=== PATIENT | female | born 1995 | race Caucasian/White ===

== ENCOUNTER 2017-01-17 19:29 | Emergency (ER) | payer MEDICAID ==
[~2017-01-17] VITALS: Ht 170.2 cm; Wt 52.6 kg
--- OUTSIDE RECORDS SUMMARY | 2017-01-17 19:32 | XMS REPORT | Continuity of Care Document ---
Author Author [facility] Organization [facility] Address Unknown Phone Unavailable Care Team Providers Care Shook Machine Operator Name Role Phone FRANK MANZO Primary Care Physician [phone] Insurance Providers Payer Name Policy Number Subscriber Name Relationship [facility] [employer] [id number] Karlo Galindo 17 Self Problems Medical Problems Problem Onset Date Status ABSCESS Unknown Active Laceration of ear Unknown Active Medications Medication Dose Route Sig Days/Qty Instructions Order Date Discontinued Date Status Albuterol NEEDED 10/17/08 06/17/11 Discontinued Phenylephrine/Chlor-Mal/Scop NEEDED 10/17/08 06/17/11 Discontinued [Flovent] 10/17/08 06/17/11 Discontinued [Singulair] 10/17/08 10/03/09 Discontinued [Melvi] 03/02/09 06/17/11 Discontinued Citalopram Hydrobromide 10 Mg PO DAILY 10/03/09 06/17/11 Discontinued Vits W-Ca,Fe,Fa(<1MG) 1 Tab PO DAILY 06/17/11 Active Iron 50 Mg PO DAILY 06/17/11 Active Oxycodone HCl/Acetaminophen 5 Mg PO FOUR TIMES DAILY For PAIN 15 Qty Take 1 tablet, by mouth, 4 times a day. 08/30/14 Active Social History Social History Problem Response Recorded Date/Time Smoking Status Unknown if ever smoked 08/30/2014 2:20am Query Response Start Date Stop Date Smoking Status Unknown if ever smoked Hospital Discharge Instructions No hospital discharge instructions. Plan of Care No plan of care. Functional Status Query Response Date Recorded Physical Hygiene Self August 30, 2014 2:20am Disabilities None August 30, 2014 2:20am Devices Used None August 30, 2014 2:20am Dressing Self August 30, 2014 2:20am Ambulation Self August 30, 2014 2:20am Diet Self August 30, 2014 2:20am Mental Status Alert Oriented August 30, 2014 2:20am Disabilities None August 30, 2014 2:20am Devices Used None August 30, 2014 2:20am Physical Hygiene Self August 30, 2014 2:20am Dressing Self August 30, 2014 2:20am Ambulation Self August 30, 2014 2:20am Diet Self August 30, 2014 2:20am Allergies, Adverse Reactions, Alerts Allergen Type Severity Reaction Status Last Updated No Known Drug Allergies Allergy Unknown NONE Active 08/30/14 Immunizations Name Given Type Hx Tetanus, Diptheria, Pertussis Yes Historical Hx Tetanus, Diptheria, Pertussis Yes Historical Vital Signs Acute Vital Signs Vital Response Date/Time Temperature (Fahrenheit) 97.8 deg F (96.8 - 99.1) Temperature (Calculated Celsius) 36.18464 degrees C (36.0 - 37.3) Pulse Rate (adult) 109 bpm (60 - 100) Respiratory Rate 20 breaths/min (10 - 20) O2 Sat by Pulse Oximetry 98 % (90 - 100) Blood Pressure 116/71 mm Hg Height 5 ft 7 in Weight 110 lb Body Mass Index 17.0 kg/m^2 Results Test Source Date Result Interp. Ref. Range Comments Alanine Aminotransferase (ALT/SGPT) January 25, 2011 12:40pm 14 U/L N 9- 52 Albumin January 25, 2011 12:40pm 4.70 G/DL N 3.5-5.0 Albumin/Globulin Ratio January 25, 2011 12:40pm 1.5 RATIO N 1.1-2.2 Alkaline Phosphatase January 25, 2011 12:40pm 96 U/L N 70-260 Anion Gap January 25, 2011 12:40pm 15.9 MEQ/L H 5-15 Aspartate Amino Transf (AST/SGOT) January 25, 2011 12:40pm 21 U/L N 10-40 BUN/Creatinine Ratio January 25, 2011 12:40pm 21 RATIO N 6-26 Basophils # (Auto) February 18, 2013 4:45pm 0.0 T/MM3 N 0-0.2 Basophils (%) (Auto) February 18, 2013 4:45pm 0.6 % N 0-2 Blood Urea Nitrogen January 25, 2011 12:40pm 14.4 MG/DL N 7-17 Calcium Level January 25, 2011 12:40pm 9.8 MG/DL N 8.4-10.2 Calculated Osmolality January 25, 2011 12:40pm 277 MOSM/KG N 261-280 Carbon Dioxide Level January 25, 2011 12:40pm 21 MEQ/L L 22-30 Chloride Level January 25, 2011 12:40pm 106 MEQ/L N 98-107 Creatinine January 25, 2011 12:40pm 0.7 MG/DL N 0.2-1.2 Eosinophils # (Auto) February 18, 2013 4:45pm 0.0 T/MM3 N 0-0.5 Eosinophils (%) (Auto) February 18, 2013 4:45pm 0.2 % N 0-4 Globulin January 25, 2011 12:40pm 3.1 G/DL N 2.4-3.6 Glucose Level January 25, 2011 12:40pm 118 MG/DL H 65-110 Hematocrit February 18, 2013 4:45pm 42.9 % N 36-46 Hemoglobin February 18, 2013 4:45pm 14.3 GM/DL N 12-16 Human Chorionic Gonadotropin, Qual January 25, 2011 12:40pm Negative - Lymphocytes # (Auto) February 18, 2013 4:45pm 1.5 T/MM3 N 1-4.8 Lymphocytes (%) (Auto) February 18, 2013 4:45pm 28.3 % N 23-45 Mean Corpuscular Hemoglobin February 18, 2013 4:45pm 29.4 UUG N 26-34 Mean Corpuscular Hemoglobin Concent February 18, 2013 4:45pm 33.3 GM/DL N 31-37 Mean Corpuscular Volume February 18, 2013 4:45pm 88.1 UM3 N 80-100 Mean Platelet Volume February 18, 2013 4:45pm 11.8 UM3 N 9.4-12.4 Monocytes # (Auto) February 18, 2013 4:45pm 0.5 T/MM3 N 0-0.8 Monocytes (%) (Auto) February 18, 2013 4:45pm 8.6 % N 0-9.0 Neutrophils # (Auto) February 18, 2013 4:45pm 3.3 T/MM3 N 1.8-7.7 Neutrophils (%) (Auto) February 18, 2013 4:45pm 62.3 % N 33-66 Platelet Count February 18, 2013 4:45pm 177 T/MM3 N 130-400 Potassium Level January 25, 2011 12:40pm 3.6 MEQ/L N 3.6-5 RDW Standard Deviation February 18, 2013 4:45pm 44.9 FL N 36.9-50.2 Red Blood Count February 18, 2013 4:45pm 4.87 M/MM3 N 4.00-5.20 Sodium Level January 25, 2011 12:40pm 143 MEQ/L N 134-144 Total Bilirubin January 25, 2011 12:40pm 0.88 MG/DL N 0.20-1.30 Total Protein January 25, 2011 12:40pm 7.8 G/DL N 6.3-8.2 White Blood Count February 18, 2013 4:45pm 5.3 T/MM3 N 4.5-11.0 Lab Scanned Report August 29, 2013 10:31am LAB RESULTS - SCANNED [id number] - Immature Granulocyte # (Auto) February 18, 2013 4:45pm 0.00 T/MM3 N 0.00- 0.03 Immature Granulocyte % (Auto) February 18, 2013 4:45pm 0.0 % N 0.0-0.5 Gram Stain Knee, Non-Surgical Site-Left August 25, 2013 1:00pm Procedures No known history of procedures. Encounters Encounter Location Date/Time Departed Emergency Room [facility] 08/30/14 12:47am Departed Emergency Room [facility] 07/28/14 9:45pm Recent Diagnosis
--- OUTSIDE RECORDS SUMMARY | 2017-01-17 19:33 | XMS REPORT | Continuity of Care Document ---
Author Author [facility] Organization [facility] Address Unknown Phone Unavailable Allergies Active Description Code Type Severity Reaction Onset Reported/Identified Relationship to Patient Clinical Status Yes No Known Drug Intolerances No Known Drug Intolerances Drug Allergy Unknown UNK 06/30/2011 Medications Problems Date Dx Coded Attending Type Code Diagnosis Diagnosed By 10/24/2015 Myra ADKINS, Carlos Vickers D62 ACUTE POSTHEMORRHAGIC ANEMIA 10/24/2015 Myra ADKINS, Carlos Vickers J45.909 UNSPECIFIED ASTHMA, UNCOMPLICATED 10/24/2015 Myra ADKINS, Carlos Vickers O69.81X0 LABOR AND DEL COMP BY CORD AROUND NECK, W/ O COMPRS 10/24/2015 Carlos Renteria MD O71.4 OBSTETRIC HIGH VAGINAL LACERATION ALONE 10/24/2015 Myra ADKINS, Carlos Veronica O80 ENCOUNTER FOR FULL-TERM UNCOMPLICATED DELIVERY 10/24/2015 Carlos Renteria MD O99.02 ANEMIA COMPLICATING CHILDBIRTH 10/24/2015 Carlos Renteria MD O99.52 DISEASES OF THE RESPIRATORY SYSTEM COMPLICATING CH 10/24/2015 Carlos Renteria MD Z37.0 SINGLE LIVE 10/24/2015 Carlos Renteria MD Z3A.40 40 WEEKS GESTATION OF Procedures Code Description Performed By Performed On [id number] REPAIR VAGINA, EXTERNAL APPROACH Azael Hoskins MD 10/24/2015 [id number] DRAINAGE OF AMNIOTIC FL, THERAP FROM POC, VIA OPEN Azael Hoskins MD 10/24/2015 [id number] DELIVERY OF PRODUCTS OF CONCEPTION, EXTERNAL APPRO Azael Hoskins MD 10/24/2015 Results Test Result Range URINALYSIS, ROUTINE - 07/29/14 00:05 UA LEUKOCYTE ESTERASE DIPSTICK 2+ NEGATIVE UA NITRITE DIPSTICK NEGATIVE NEGATIVE UA PROTEIN DIPSTICK NEGATIVE NEGATIVE UA GLUCOSE DIPSTICK NEGATIVE NEGATIVE UA KETONE DIPSTICK NEGATIVE NEGATIVE UA UROBILINOGEN DIPSTICK 2+ NORMAL UA BILIRUBIN DIPSTICK NEGATIVE NEGATIVE UA BLOOD DIPSTICK NEGATIVE NEGATIVE UA COMMENT UA SPECIFIC GRAVITY 1.005 1.015-1.025 UR PH 8.0 5.0-7.0 UR TEST - 07/29/14 00:05 UR TEST NEGATIVE NEGATIVE UA MICROSCOPIC - 07/29/14 00:05 UA BACTERIA 2+ NEGATIVE UA EPITHELIAL CELLS 5+ epi/hpf 0 - 1+ UA MUCUS 2+ NEG TO 1+ UA RBC 0 rbc/hpf 0 - 3 UA VOLUME FOR EXAM 12.0 mL (12mL STD) UA WBC 5-10 wbc/hpf 0 - 5 CHEM/HEM PROFILE-BEDSIDE - 07/29/14 23:11 POTASSIUM 4.5 mmol/L 3.5-5.3 METHOD Bedside ANION GAP 14 mmol/L 10-20 METHOD Bedside GLUCOSE 100 mg/dL 70-99 BLOOD UREA NITROGEN 7 mg/dL 7-20 CREATININE 0.9 mg/dL 0.6-1.0 HEMOGLOBIN 13.6 gm/dL 12.0-16.0 HEMATOCRIT 40.0 % 37.0-47.0 SODIUM 134 mmol/L 135-148 CHLORIDE 101 mmol/L 98-110 CARBON DIOXIDE 24 mmol/L 21-32 CALCIUM IONIZED 4.3 mg/dL 4.5-5.3 CBC W/MANUAL DIFF - 07/29/14 23:11 MEAN CELL HGB 31.3 pg 27.0-33.0 MEAN CELL HGB CONCENTRATION 34.8 g/dL 32.0-37.0 MEAN CELL VOLUME 90.0 fl 80.0-100.0 RED BLOOD CELL 4.18 m/cumm 4.00-6.00 RED CELL DISTRIBUTION WIDTH 12.9 % 11.0- 15.6 WHITE BLOOD CELL 15.1 k/cumm 5.0-10.0 HEMOGLOBIN 13.1 gm/dL 12.0-16.0 HEMATOCRIT 37.6 % 37.0-47.0 PLATELET COUNT 286 k/cumm 150-400 MANUAL DIFF(O) - 07/29/14 23:11 GRANULOCYTE # 12.4 k/cumm 2.0-9.0 LYMPHOCYTE # 2.0 k/cumm 1.0-4.0 LYMPHOCYTE % 13 % 20-30 DIFFERENTIAL MANUAL MONOCYTE # 0.8 k/cumm 0.1-1.0 MONOCYTE % 5 % 4-6 RBC MORPH NORMAL SEGMENTED NEUTROPHIL % 82 % 50-70 HEPATIC FUNCTION PANEL - 07/29/14 23:11 BILI UNCONJUGATED 0.5 mg/dL 0.0-0.7 AST/SGOT 10 Units/L 10-37 ALT/SGPT 14 Units/L < 66 TOTAL PROTEIN 7.1 gm/dL 6.4-8.2 ALBUMIN 3.0 gm/dL 3.4-5.0 BILI TOTAL 0.6 mg/dL 0.0-1.0 ALKALINE PHOSPHATASE TOTAL 52 IU/L 45- 117 BILI CONJUGATED 0.1 mg/dL 0.0-0.3 LIPASE - 07/29/14 23:11 LIPASE 87 Units/L 73-393 WET MOUNT - 07/30/14 03:05 Microbiology GRAM STAIN - CHLAMYDIA DNA BY PCR - 07/30/14 03:05 Microbiology CBC W/DIFF - 04/13/15 18:55 EOSINOPHIL # 0.1 k/cumm 0.1-0.5 EOSINOPHIL % 1 % 2-4 GRANULOCYTE # 7.3 k/cumm 2.0-9.0 GRANULOCYTE % 75 % 50-75 LYMPHOCYTE # 1.7 k/cumm 1.0-4.0 LYMPHOCYTE % 17 % 20-30 MEAN CELL HGB 31.1 pg 27.0-33.0 MEAN CELL HGB CONCENTRATION 35.2 g/dL 32.0-37.0 MEAN CELL VOLUME 88.6 fl 80.0-100.0 MONOCYTE # 0.7 k/cumm 0.1-1.0 MONOCYTE % 7 % 4-6 RED BLOOD CELL 4.11 m/cumm 4.00-6.00 RED CELL DISTRIBUTION WIDTH 12.6 % 11.0- 15.6 WHITE BLOOD CELL 9.7 k/cumm 5.0-10.0 HEMOGLOBIN 12.8 gm/dL 12.0-16.0 HEMATOCRIT 36.4 % 37.0-47.0 PLATELET COUNT 224 k/cumm 150-400 HCG QUANT INTACT - 04/13/15 18:55 HCG QUANT INTACT 65383 mIU/mL CHEM/HEM PROFILE-BEDSIDE - 04/13/15 19:00 POTASSIUM 3.8 mmol/L 3.5-5.3 METHOD Bedside ANION GAP 17 mmol/L 10-20 METHOD Bedside GLUCOSE 102 mg/dL 70-99 BLOOD UREA NITROGEN 6 mg/dL 7-20 CREATININE 0.4 mg/dL 0.6-1.0 HEMOGLOBIN 12.6 gm/dL 12.0-16.0 HEMATOCRIT 37.0 % 37.0-47.0 SODIUM 137 mmol/L 135-148 CHLORIDE 105 mmol/L 98-110 CARBON DIOXIDE 20 mmol/L 21-32 CALCIUM IONIZED 4.8 mg/dL 4.5-5.3 URINALYSIS, ROUTINE - 04/13/15 19:44 UA LEUKOCYTE ESTERASE DIPSTICK TRACE NEGATIVE UA NITRITE DIPSTICK NEGATIVE NEGATIVE UA PROTEIN DIPSTICK NEGATIVE NEGATIVE UA GLUCOSE DIPSTICK NEGATIVE NEGATIVE UA KETONE DIPSTICK NEGATIVE NEGATIVE UA UROBILINOGEN DIPSTICK NORMAL NORMAL UA BILIRUBIN DIPSTICK NEGATIVE NEGATIVE UA BLOOD DIPSTICK NEGATIVE NEGATIVE UA SPECIFIC GRAVITY 1.015 1.015-1.025 UR PH 7.5 5.0-7.0 UA MICROSCOPIC - 04/13/15 19:44 UA BACTERIA 1+ NEGATIVE UA EPITHELIAL CELLS 3+ epi/hpf 0 - 1+ UA MUCUS 1+ NEG TO 1+ UA RBC 0-3 rbc/hpf 0 - 3 UA VOLUME FOR EXAM 12.0 mL (12mL STD) UA WBC 2-5 wbc/hpf 0 - 5 UR TEST - 04/13/15 19:45 UR TEST POSITIVE NEGATIVE CBC W/DIFF - 10/21/15 14:35 GRANULOCYTE # 9.0 k/cumm 2.0-9.0 LYMPHOCYTE # 0.7 k/cumm 1.0-4.0 LYMPHOCYTE % 7 % 20-30 MEAN CELL HGB 30.7 pg 27.0-33.0 MEAN CELL HGB CONCENTRATION 34.0 g/dL 32.0-37.0 MEAN CELL VOLUME 90.2 fl 80.0-100.0 MONOCYTE # 0.8 k/cumm 0.1-1.0 MONOCYTE % 8 % 4-6 RED BLOOD CELL 3.88 m/cumm 4.00-6.00 RED CELL DISTRIBUTION WIDTH 13.5 % 11.0- 15.6 WHITE BLOOD CELL 10.6 k/cumm 5.0-10.0 HEMOGLOBIN 11.9 gm/dL 12.0-16.0 HEMATOCRIT 35.0 % 37.0-47.0 PLATELET COUNT 272 k/cumm 150-400 MANUAL DIFF(R) - 10/21/15 14:35 BAND % 1 % 0-10 DIFFERENTIAL MANUAL RBC MORPH NOTED SEGMENTED NEUTROPHIL % 84 % 50-70 URINALYSIS, ROUTINE - 10/21/15 14:35 UA LEUKOCYTE ESTERASE DIPSTICK TRACE NEGATIVE UA NITRITE DIPSTICK NEGATIVE NEGATIVE UA PROTEIN DIPSTICK TRACE NEGATIVE UA GLUCOSE DIPSTICK NEGATIVE NEGATIVE UA KETONE DIPSTICK TRACE NEGATIVE UA UROBILINOGEN DIPSTICK NORMAL NORMAL UA BILIRUBIN DIPSTICK NEGATIVE NEGATIVE UA BLOOD DIPSTICK NEGATIVE NEGATIVE UA SPECIFIC GRAVITY 1.030 1.015-1.025 UR PH 8.0 5.0-7.0 UA MICROSCOPIC - 10/21/15 14:35 UA AMORPHOUS SEDIMENT 1+ UA BACTERIA 3+ NEGATIVE UA EPITHELIAL CELLS 3+ epi/hpf 0 - 1+ UA MUCUS 1+ NEG TO 1+ UA RBC 3-5 rbc/hpf 0 - 3 UA VOLUME FOR EXAM 6.0 mL (12mL STD) UA WBC 2-5 wbc/hpf 0 - 5 METABOLIC PANEL, COMPREHN - 10/21/15 14:35 POTASSIUM 3.6 mmol/L 3.5-5.3 EST GFR (MDRD) > 60 mL/min > 59 ANION GAP 7 mmol/L 5-15 EST CrCl (CG) > 60 mL/min > 59 GLUCOSE 85 mg/dL 70-99 CALCIUM 7.8 mg/dL 8.5-10.1 BLOOD UREA NITROGEN 11 mg/dL 7-20 CREATININE 0.6 mg/dL 0.6-1.0 SODIUM 137 mmol/L 135-148 CHLORIDE 105 mmol/L 98-110 AST/SGOT 14 Units/L 10-37 ALT/SGPT 14 Units/L < 66 CARBON DIOXIDE 25 mmol/L 21-32 TOTAL PROTEIN 7.0 gm/dL 6.4-8.2 ALBUMIN 2.9 gm/dL 3.4-5.0 BILI TOTAL 0.4 mg/dL 0.0-1.0 ALKALINE PHOSPHATASE TOTAL 106 IU/L 45- 117 CBC - 10/24/15 11:55 MEAN CELL HGB 30.3 pg 27.0-33.0 MEAN CELL HGB CONCENTRATION 33.5 g/dL 32.0-37.0 MEAN CELL VOLUME 90.3 fl 80.0-100.0 RED BLOOD CELL 4.13 m/cumm 4.00-6.00 RED CELL DISTRIBUTION WIDTH 13.7 % 11.0- 15.6 WHITE BLOOD CELL 14.2 k/cumm 5.0-10.0 HEMOGLOBIN 12.5 gm/dL 12.0-16.0 HEMATOCRIT 37.3 % 37.0-47.0 PLATELET COUNT 277 k/cumm 150-400 CORD VENOUS BLOOD GAS - 10/24/15 14:40 VENOUS CORD BLOOD BASE EXCESS -3.9 meq/L -5.8-0.7 COMMENT VENOUS VENOUS CORD BLOOD HCO3 20.3 meq/L 17.4- 25.4 VENOUS CORD BLOOD PCO2 35 mm Hg 28-57 VENOUS CORD BLOOD PH 7.38 7.23-7.46 VENOUS CORD BLOOD PO2 42 mm Hg 15-42 VENOUS CORD BLOOD O2 SAT 86 % 14-75 CORD ARTERIAL BLOOD GAS - 10/24/15 14:40 ARTERIAL CORD BLD BASE EXCESS -4.5 meq/L -7.6-1.3 COMMENT ARTERIAL ARTERIAL CORD BICARBONATE 23.8 meq/L 16.0 -27.1 ARTERIAL CORD BLOOD PCO2 57 mm Hg 32-69 ARTERIAL CORD BLOOD PH 7.24 7.14-7.40 ARTERIAL CORD BLOOD PO2 16.5 mm Hg 8-33 ARTERIAL CORD BLOOD O2 SAT 18 % 5-59 HEMOGLOBIN - 10/24/15 18:40 MEAN CELL VOLUME 90.4 fl 80.0-100.0 HEMOGLOBIN 10.9 gm/dL 12.0-16.0 HGB HCT - 10/25/15 05:47 MEAN CELL VOLUME 90.9 fl 80.0-100.0 HEMOGLOBIN 10.8 gm/dL 12.0-16.0 HEMATOCRIT 32.1 % 37.0-47.0 HEMOGLOBIN - 05/12/16 14:37 MEAN CELL VOLUME 89.4 fl 80.0-100.0 HEMOGLOBIN 12.7 gm/dL 12.0-16.0 HCG QUANT INTACT - 05/12/16 14:37 HCG QUANT INTACT 769 mIU/mL URINALYSIS, ROUTINE - 05/12/16 15:56 UA LEUKOCYTE ESTERASE DIPSTICK NEGATIVE NEGATIVE UA NITRITE DIPSTICK NEGATIVE NEGATIVE UA PROTEIN DIPSTICK 2+ NEGATIVE UA GLUCOSE DIPSTICK NEGATIVE NEGATIVE UA KETONE DIPSTICK TRACE NEGATIVE UA UROBILINOGEN DIPSTICK NORMAL NORMAL UA BILIRUBIN DIPSTICK 1+ NEGATIVE UA BLOOD DIPSTICK 3+ NEGATIVE UA SPECIFIC GRAVITY 1.015 1.015-1.025 UR PH 7.5 5.0-7.0 UA MICROSCOPIC - 05/12/16 15:56 UA AMORPHOUS SEDIMENT 1+ UA BACTERIA 1+ NEGATIVE UA EPITHELIAL CELLS 1+ epi/hpf 0 - 1+ UA MUCUS 1+ NEG TO 1+ UA RBC 20-50 rbc/hpf 0 - 3 UA VOLUME FOR EXAM 12.0 mL (12mL STD) UA WBC 2-5 wbc/hpf 0 - 5 Encounters ACCT No. Visit Date/Time Discharge Status Pt. Type Provider Facility Loc./Unit Complaint [id number] 2016 14:11:00 2015 17:54:00 DIS Emergency Adeline Gilliam DO [address] W.KATHERYN [id number] 10/24/2015 11:56:00 2014 18:31:00 DIS Inpatient Myra ADKINS, [facility] W.5WH [id number] 10/21/2015 13:45:00 2014 19:18:00 DIS Emergency Myra ADKINS, [facility] W.2WOBED [id number] 07/13/2015 17:44:00 2014 21:09:00 DIS Emergency Myra ADKINS, [facility] W.2WOBED [id number] 04/13/2015 18:23:00 2014 21:41:00 DIS Emergency Jovanna ADKINS, [facility] [id number] 07/29/2014 22:48:00 2013 04:13:00 DIS Emergency Uri Spencer DO W.KATHERYN [id number] 08/18/2015 13:53:00 Document Registration
--- OUTSIDE RECORDS SUMMARY | 2017-01-17 19:33 | XMS REPORT | Continuity of Care Document ---
Author Author [facility] Organization [facility] Address Unknown Phone Unavailable Care Team Providers Care Dry Cell Assembly Machine Tender Name Role Phone FRANK MANZO Primary Care Physician [phone] Insurance Providers Guarantor Karlo Galindo Address [address] [place] [address] Email [email or web address] Payer [facility] [employer] Policy Number [id number] Subscriber's Name Karlo Galindo Relationship 18 Self Effective Date 16 Expiration Date 16 Advance Directives Directive Response Recorded Date/Time Ordered Resuscitation Status Full Code 11/15/16 3:46pm Resuscitation Documents on File No 11/17/16 6:55am DPOA for Healthcare Only No 11/17/16 6:55am Living Will No 11/17/16 6:55am Problems Active Problems Medical Problem Onset Date Status ABSCESS Unknown Acute Chronic cough Unknown Acute Laceration of ear Unknown Acute Sinusitis Unknown Acute Past Problems Medical Problem Onset Date Epigastric abdominal pain Unknown Medications Past Home Medications Medication Directions Ordered Status Albuterol 17 Gm Aerosol, As Needed 10/17/08 Discontinued Citalopram Hydrobromide (Celexa) 10 Mg Tablet, 10 Mg Oral Daily 10/03/09 Discontinued Flovent , 10/17/08 Discontinued Phenylephrine/Chlor-Mal/Scop (Dallergy Tablet) 1 Tab Tablet, As Needed Discontinued Singulair , 10/17/08 Discontinued Melvi , 03/02/09 Discontinued Social History Social History Problem Response Recorded Date/Time Onset Date Status Reason for Hospitalization EGD 11/17/2016 9:09am Not Applicable Not Applicable Hx Substance Use No 11/17/2016 6:50am Not Applicable Not Applicable Hx Alcohol Use No 10/23/2016 4:12pm Not Applicable Not Applicable Has the pt used tobacco in the last 12 months Yes 11/17/2016 6:50am Not Applicable Not Applicable Tobacco Usage smoke 11/18/2014 2:47pm Not Applicable Not Applicable Query Response Start Date Stop Date Smoking Status Current every day smoker Hospital Discharge Instructions Instructions: Care Instructions: I was in the hospital because (patient own words): scope down throat Discharge Diet: Resume previous diet Discharge Activity: Restricted today, as tolerated tomorrow. Follow Up Appointments: None Pending Lab / Results: No Pending Lab Patient Instructions: START MEDICINES FOR NAUSEA NEEDED Expected Signs/Symptoms: None Notify Physician If: Severe abdominal pain. During Business Hours:: Please call the physician's office at [phone] and choose option 2. After Business Hours:: Please call [phone] and have the refinery operator crude unit page Dr. York. Pain Management/Treatment: N/A Wound/Incision Care: N/A Condition at time of discharge: Good Plan of Care Discharge Date 11/17/16 9:25am Prescriptions See Medication Section Functional Status Query Response Date Recorded Ability to complete ADL's impeded by No change November 17, 2016 6:55am Allergies, Adverse Reactions, Alerts Allergen Type Severity Reaction Status Last Updated No Known Drug Allergies Allergy Unknown NONE Active 11/18/14 Immunizations Query Response on File Recorded Date/Time Hx Influenza Vaccination No 11/17/16 6:50am Hx Pneumococcal Vaccination No 11/17/16 6:50am Hx Tetanus, Diptheria, Pertussis Yes 11/18/14 2:05pm Hx Influenza Vaccination No 11/17/16 6:50am Hx Tetanus, Diptheria, Pertussis Yes 11/18/14 2:05pm Influenza Vaccine Hx 08/2010/23/16 4:12pm Vital Signs Acute Vital Signs Vital Response Date/Time Temperature (Fahrenheit) 98.2 deg F (96.8 - 99.1) 11/17/2016 8:26am Temperature (Calculated Celsius) 36.73445 degrees C (36.0 - 37.3) 11/17/2016 8:26am Temperature Source Temporal 11/17/2016 8:26am Pulse Rate (adult) 62 bpm (60 - 100) 11/17/2016 9:14am Respiratory Rate 19 breaths/min (10 - 20) 11/17/2016 9:14am O2 Sat by Pulse Oximetry 100 % (90 - 100) 11/17/2016 9:14am Oxygen Delivery Method Room Air 11/17/2016 9:14am Blood Pressure 103/57 mm Hg 11/17/2016 9:14am Blood Pressure Source Automatic Cuff 11/17/2016 9:14am Height (Feet) 5 feet 11/17/2016 6:48am Height (Inches) 7.00 inches 11/17/2016 6:48am Weight (Kilograms) 51.500 kg 11/17/2016 6:48am Body Mass Index (BMI) 17.8 11/17/2016 6:48am Results Laboratory Results Test Name Result Units Flags Reference Collection Date/Time Result Date/ Time Comments White Blood Count 5.0 T/MM3 4.5-11.0 10/23/2016 4:27pm 10/23/2016 4: 37pm Red Blood Count 4.71 M/MM3 4.00-5.20 10/23/2016 4:27pm 10/23/2016 4: 37pm Hemoglobin 13.9 GM/DL 12-16 10/23/2016 4:pm 10/23/2016 4:37pm Hematocrit 41.6 % 36-46 10/23/2016 4:10/23/2016 4:37pm Mean Corpuscular Volume 88.3 UM3 80-100 10/23/2016 4:pm 10/23/2016 4: 37pm Mean Corpuscular Hemoglobin 29.5 UUG 26-34 10/23/2016 4:pm 2015 4:37pm Mean Corpuscular Hemoglobin Concent 33.4 GM/DL 31-37 10/23/2016 4:pm 10/23/2016 4:37pm RDW Standard Deviation 42.2 FL 36.9-50.2 10/23/2016 4:pm 10/23/2016 4 :37pm Platelet Count 218 T/MM3 130-400 10/23/2016 4:10/23/2016 4:37pm Mean Platelet Volume 11.7 UM3 9.4-12.4 10/23/2016 4:10/23/2016 4: 37pm Neutrophils (%) (Auto) 45.8 % 33-66 10/23/2016 4:10/23/2016 4: 37pm Lymphocytes (%) (Auto) 41.4 % 23-45 10/23/2016 4:10/23/2016 4: 37pm Monocytes (%) (Auto) 10.4 % H 0-9.0 10/23/2016 4:10/23/2016 4:37pm Eosinophils (%) (Auto) 1.6 % 0-4 10/23/2016 4:10/23/2016 4:37pm Basophils (%) (Auto) 0.6 % 0-2 10/23/2016 4:10/23/2016 4:37pm Immature Granulocyte % (Auto) 0.2 % 0.0-0.5 10/23/2016 4:2015 4:37pm Absolute Neutrophils (auto) 2.3 T/MM3 1.8-7.7 10/23/2016 4:2015 4:37pm Absolute Lymphocytes (auto) 2.1 T/MM3 1-4.8 10/23/2016 4:2015 4:37pm Absolute Monocytes (auto) 0.5 T/MM3 0-0.8 10/23/2016 4:10/23/2016 4:37pm Absolute Eosinophils (auto) 0.1 T/MM3 0-0.5 10/23/2016 4:2015 4:37pm Absolute Basophils (auto) 0.0 T/MM3 0-0.2 10/23/2016 4:10/23/2016 4:37pm Absolute Immature Granulocyte (auto 0.01 T/MM3 0.00-0.03 10/23/2016 4: 10/23/2016 4:37pm Icterus Index < 2 0-7 10/23/2016 4:10/23/2016 4:44pm Chemistry Specimen Hemolysis < 15 0-25 10/23/2016 4:10/23/2016 4 :44pm 0-25: Specimen Exhibited No Hemolysis. Turbidity < 20 0-20 10/23/2016 4:pm 10/23/2016 4:44pm Sodium Level 145 MEQ/L H 134-144 10/23/2016 4:pm 10/23/2016 4:44pm Potassium Level 3.2 MEQ/L L 3.6-5 10/23/2016 4:27pm 10/23/2016 4:44pm Chloride Level 108 MEQ/L H 98-107 10/23/2016 4:10/23/2016 4:44pm Carbon Dioxide Level 25 MEQ/L 22-30 10/23/2016 4:pm 10/23/2016 4: 44pm Anion Gap 12 MEQ/L 5-15 10/23/2016 4:pm 10/23/2016 4:44pm Blood Urea Nitrogen 8.0 MG/DL 7-17 10/23/2016 4:pm 10/23/2016 4:44pm Creatinine 0.6 MG/DL L 0.7-1.2 10/23/2016 4:10/23/2016 4:44pm BUN/Creatinine Ratio 13 RATIO 6-26 10/23/2016 4:pm 10/23/2016 4:44pm Glomerular Filtration Rate Calc 125 10/23/2016 4:pm 10/23/2016 4: 44pm Glucose Level 82 MG/DL 65-110 10/23/2016 4:pm 10/23/2016 4:44pm Calculated Osmolality 276 MOSM/KG 261-280 10/23/2016 4:10/23/2016 4:44pm Calcium Level 9.3 MG/DL 8.4-10.2 10/23/2016 4:10/23/2016 4:44pm Total Bilirubin 0.40 MG/DL 0.20-1.30 10/23/2016 4:pm 10/23/2016 4: 44pm Alkaline Phosphatase 54 U/L 38-126 10/23/2016 4:pm 10/23/2016 4:44pm Total Protein 7.4 G/DL 6.3-8.2 10/23/2016 4:pm 10/23/2016 4:44pm Albumin 4.2 G/DL 3.5-5.0 10/23/2016 4:27pm 10/23/2016 4:44pm Globulin 3.2 G/DL 2.4-3.6 10/23/2016 4:27pm 10/23/2016 4:44pm Albumin/Globulin Ratio 1.3 RATIO 1.1-2.2 10/23/2016 4:27pm 10/23/2016 4 :44pm Aspartate Amino Transf (AST/SGOT) 26 U/L 14-36 10/23/2016 4:27pm 2015 4:44pm Alanine Aminotransferase (ALT/SGPT) 28 U/L 9-52 10/23/2016 4:27pm 10/23 4:44pm Lipase 107 U/L 23-300 10/23/2016 4:27pm 10/23/2016 4:44pm Urine Collection Type VOIDED-NOT CC-MIDSTR 10/23/2016 4:28pm 2015 4:35pm Urine Color YELLOW YELLOW 10/23/2016 4:28pm 10/23/2016 4:35pm Urine Turbidity SL CLOUDY CLEAR 10/23/2016 4:28pm 10/23/2016 4:35pm Urine Specific [place] >=1.030 H 1.015-1.025 10/23/2016 4:28pm 2015 4:35pm Urine pH 6.0 5.0-8.0 10/23/2016 4:28pm 10/23/2016 4:35pm Urine Leukocyte Esterase NEGATIVE NEGATIVE 10/23/2016 4:28pm 2015 4:35pm Urine Nitrite NEGATIVE NEGATIVE 10/23/2016 4:28pm 10/23/2016 4:35pm Urine Protein TRACE A NEGATIVE 10/23/2016 4:28pm 10/23/2016 4:35pm Urine Glucose (UA) NEGATIVE NEGATIVE 10/23/2016 4:28pm 10/23/2016 4: 35pm Urine Ketones NEGATIVE NEGATIVE 10/23/2016 4:28pm 10/23/2016 4:35pm Urine Urobilinogen 4.0 EU/DL A NORMAL 10/23/2016 4:28pm 10/23/2016 4: 35pm Urine Bilirubin NEGATIVE NEGATIVE 10/23/2016 4:28pm 10/23/2016 4: 35pm Urine Blood NEGATIVE NEGATIVE 10/23/2016 4:28pm 10/23/2016 4:35pm Urine WBC 1-3 /HPF 0-5 10/23/2016 4:28pm 10/23/2016 4:42pm Urine RBC NONE SEEN /HPF 0-3 10/23/2016 4:28pm 10/23/2016 4:42pm Urine Squamous Epithelial Cells 10-20 10/23/2016 4:28pm 10/23/2016 4:42pm Urine Bacteria TRACE H NEGATIVE 10/23/2016 4:28pm 10/23/2016 4:42pm Urine Calcium Oxalate Crystals MODERATE 10/23/2016 4:28pm 2015 4:42pm Urine Amorphous Urates MODERATE 10/23/2016 4:28pm 10/23/2016 4: 42pm Urine Mucus PRESENT 10/23/2016 4:28pm 10/23/2016 4:42pm Urine Culture Indicated CULT NOT INDICATED 10/23/2016 4:28pm 2015 4:42pm Procedures Procedure Status Date Provider(s) Routine venipuncture Completed 10/23/16 Comprehen metabolic panel Completed 10/23/16 Urinalysis auto w/scope Completed 10/23/16 Urine test Completed 10/23/16 Assay of lipase Completed 10/23/16 Complete cbc w/auto diff wbc Completed 10/23/16 Hydrate iv infusion add-on Completed 10/23/16 Ther/proph/diag iv inf init Completed 10/23/16 Tx/pro/dx inj new drug addon Completed 10/23/16 Tx/pro/dx inj new drug addon Completed 10/23/16 Emergency dept visit Completed 10/23/16 [id number]"INJECTION, ONDANSETRON HYDROCHLORIDE, PER 1 MG" Completed 10/23/16839006"INJECTION, FENTANYL CITRATE, 0.1 MG" Completed 10/23/16 [id number]"INFUSION, NORMAL SALINE SOLUTION , 1000 CC" Completed 10/23/16 [id number]"INFUSION, NORMAL SALINE SOLUTION , 250 CC" Completed 10/23/16 Compound Drug, Not Otherwise Classified Completed 10/23/16 [id number]"INJECTION, FAMOTIDINE, 20 MG" Completed 10/23/16 Esophagogastroduodenoscopy (EGD) with closed biopsy Completed 11/17/16 ARMANDO YORK MD Encounters Encounter Location Arrival/Admit Date Discharge/Depart Date Attending Provider Departed [facility] 11/17/16 6:35am 11/17/16 9: 25am ARMANDO YORK MD Registered Clinic [facility] 11/16/16 7:45am ARMANDO YORK MD Registered Clinic [facility] 11/09/16 7:29am ARMANDO YORK MD Departed Emergency Room [facility] 10/23/16 3:55pm 10/23/16 6: 31pm ROSANNA MADDOX DO
--- OUTSIDE RECORDS SUMMARY | 2017-01-17 19:33 | XMS REPORT | Continuity of Care Document ---
Author Author [facility] Organization [facility] Address Unknown Phone Unavailable Care Team Providers Care Tyre Builder Name Role Phone FRANK MANZO Primary Care Physician [phone] Insurance Providers Payer Name Policy Number Subscriber Name Relationship Effie [employer] [id number] Karlo Galindo 18 Self Problems Medical Problems Problem Onset Date Status ABSCESS Unknown Active Laceration of ear Unknown Active Chronic cough Unknown Active Sinusitis Unknown Active Medications Medication Dose Route Sig Days/Qty Instructions Order Date Discontinued Date Status Albuterol NEEDED 10/17/08 06/17/11 Discontinued Phenylephrine/Chlor-Mal/Scop NEEDED 10/17/08 06/17/11 Discontinued [Flovent] 10/17/08 06/17/11 Discontinued [Singulair] 10/17/08 10/03/09 Discontinued [Melvi] 03/02/09 06/17/11 Discontinued Citalopram Hydrobromide 10 Mg PO DAILY 10/03/09 06/17/11 Discontinued Azithromycin 1 Tab PO DAILY 5 Days TAKE TWO TABLETS ON DAY ONE, 11/18/14 Active Benzonatate 100 Mg PO Every 8 Hours PRN PRN ORDERS 30 Qty 11/18/14 Active Sertraline HCl 100 Mg PO DAILY 11/18/14 Active Trazodone HCl 50 Mg PO BEDTIME 11/18/14 Active Social History Social History Problem Response Recorded Date/Time Hx Substance Use No 11/18/2014 2:05pm Hx Alcohol Use No 11/18/2014 2:05pm Tobacco Usage smoke 11/18/2014 2:47pm Query Response Start Date Stop Date Smoking Status Heavy Smoker Hospital Discharge Instructions No hospital discharge instructions. Plan of Care No plan of care. Functional Status Query Response Date Recorded Physical Hygiene Self November 18, 2014 2:05pm Disabilities None November 18, 2014 2:05pm Devices Used None November 18, 2014 2:05pm Dressing Self November 18, 2014 2:05pm Ambulation Self November 18, 2014 2:05pm Diet Self November 18, 2014 2:05pm Mental Status Alert Oriented November 18, 2014 2:05pm Disabilities None November 18, 2014 2:05pm Devices Used None November 18, 2014 2:05pm Physical Hygiene Self November 18, 2014 2:05pm Dressing Self November 18, 2014 2:05pm Ambulation Self November 18, 2014 2:05pm Diet Self November 18, 2014 2:05pm Allergies, Adverse Reactions, Alerts Allergen Type Severity Reaction Status Last Updated No Known Drug Allergies Allergy Unknown NONE Active 11/18/14 Immunizations Name Given Type Hx Influenza Vaccination No Historical Hx Tetanus, Diptheria, Pertussis Yes Historical Hx Influenza Vaccination No Historical Hx Tetanus, Diptheria, Pertussis Yes Historical Vital Signs Acute Vital Signs Vital Response Date/Time Temperature (Fahrenheit) 97.9 deg F (96.8 - 99.1) Temperature (Calculated Celsius) 36.71844 degrees C (36.0 - 37.3) Pulse Rate (adult) 109 bpm (60 - 100) Respiratory Rate 16 breaths/min (10 - 20) O2 Sat by Pulse Oximetry 98 % (90 - 100) Blood Pressure 127/67 mm Hg Height 5 ft 7 in Weight 128 lb Body Mass Index 20.0 kg/m^2 Results Test Source Date Result Interp. [...] 29, 2013 10:31am LAB RESULTS - SCANNED [id number] - Immature Granulocyte # (Auto) February 18, 2013 4:45pm 0.00 T/MM3 N 0.00- 0.03 Immature Granulocyte % (Auto) February 18, 2013 4:45pm 0.0 % N 0.0-0.5 Gram Stain Knee, Non-Surgical Site-Left August 25, 2013 1:00pm Procedures No known history of procedures. Encounters Encounter Location Date/Time Departed Emergency Room [facility] 11/18/14 1:56pm Departed Emergency Room [facility] 08/30/14 12:47am Recent Diagnosis
--- OUTSIDE RECORDS SUMMARY | 2017-01-17 19:33 | XMS REPORT | Continuity of Care Document ---
Author Author [facility] Organization [facility] Address Unknown Phone Unavailable Care Team Providers Care Gum Machine Filler Name Role Phone DAISY CASTANO DO Primary Care Physician [phone] Insurance Providers Payer Name Policy Number Subscriber Name Relationship Effie [employer] [id number] Karlo Galindo 17 Self Problems Medical Problems Problem Onset Date Status ABSCESS Unknown Active Medications Medication Dose Route Sig Days/Qty Instructions Order Date Discontinued Date Status Albuterol NEEDED 10/17/08 06/17/11 Discontinued Phenylephrine/Chlor-Mal/Scop NEEDED 10/17/08 06/17/11 Discontinued [Flovent] 10/17/08 06/17/11 Discontinued [Singulair] 10/17/08 10/03/09 Discontinued [Melvi] 03/02/09 06/17/11 Discontinued Citalopram Hydrobromide 10 Mg PO DAILY 10/03/09 06/17/11 Discontinued Vits W-Ca,Fe,Fa(<1MG) 1 Tab PO DAILY 06/17/11 Active Iron 50 Mg PO DAILY 06/17/11 Active Social History No social history. Hospital Discharge Instructions No hospital discharge instructions. Plan of Care No plan of care. Functional Status No functional status results. Allergies, Adverse Reactions, Alerts Allergen Type Severity Reaction Status Last Updated No Known Drug Allergies Allergy Unknown NONE Active 07/28/14 Immunizations Name Given Type Hx Tetanus, Diptheria, Pertussis Yes Historical Hx Tetanus, Diptheria, Pertussis Yes Historical Vital Signs Acute Vital Signs Vital Response Date/Time Temperature (Fahrenheit) 99.8 deg F (96.8 - 99.1) Temperature (Calculated Celsius) 37.26547 degrees C (36.0 - 37.3) Pulse Rate (adult) 118 bpm (60 - 100) Respiratory Rate 24 breaths/min (10 - 20) O2 Sat by Pulse Oximetry 100 % (90 - 100) Blood Pressure 101/57 mm Hg Height (Feet) 5 feet Height (Inches) 7.00 inches Weight (Kilograms) 50.1 kg Body Mass Index (BMI) 17.0 Results Test Source Date Result Interp. Ref. [...] 29, 2013 10:31am LAB RESULTS - SCANNED [id number] - Immature Granulocyte # (Auto) February 18, 2013 4:45pm 0.00 T/MM3 N 0.00- 0.03 Immature Granulocyte % (Auto) February 18, 2013 4:45pm 0.0 % N 0.0-0.5 Gram Stain Knee, Non-Surgical Site-Left August 25, 2013 1:00pm Procedures No known history of procedures. Encounters Encounter Location Date/Time Departed Emergency Room [facility] 07/28/14 9:45pm Recent Diagnosis
[2017-01-17 19:40] VITALS: Ht 170.2 cm; Wt 52.6 kg
--- OUTSIDE RECORDS SUMMARY | 2017-01-17 19:55 | XMS REPORT | Continuity of Care Document ---
Author Author [facility] Organization [facility] Address Unknown Phone Unavailable Care Team Providers Care Advanced Practice Nurse Name Role Phone FRANK MANZO Primary Care Physician [phone] Insurance Providers Payer Name Policy Number Subscriber Name Relationship [facility] [employer] [id number] Karlo Galindo 17 Self Problems Medical Problems [...] F (96.8 - 99.1) Temperature (Calculated Celsius) 36.05400 degrees C (36.0 - 37.3) Pulse Rate [...] 29, 2013 10:31am LAB RESULTS - SCANNED [id number] - Immature Granulocyte # (Auto) February 18, 2013 4:45pm 0.00 T/MM3 N 0.00- 0.03 Immature Granulocyte % (Auto) February 18, 2013 4:45pm 0.0 % N 0.0-0.5 Gram Stain Knee, Non-Surgical Site-Left August 25, 2013 1:00pm Procedures No known history of procedures. Encounters Encounter Location Date/Time Departed Emergency Room [facility] 08/30/14 12:47am Departed Emergency Room [facility] 07/28/14 9:45pm Recent Diagnosis
--- OUTSIDE RECORDS SUMMARY | 2017-01-17 19:56 | XMS REPORT | Continuity of Care Document ---
Author Author [facility] Organization [facility] Address Unknown Phone Unavailable Allergies Active Description [...] VAGINA, EXTERNAL APPROACH Azael Hoskins MD 10/24/2015 [id number] DRAINAGE OF AMNIOTIC FL, THERAP FROM POC, VIA OPEN Azael Hoskins MD 10/24/2015 [id number] DELIVERY OF PRODUCTS OF CONCEPTION, EXTERNAL APPRO [...] INTACT - 04/13/15 18:55 HCG QUANT INTACT 34736 mIU/mL CHEM/HEM PROFILE-BEDSIDE - 04/13/15 19:00 POTASSIUM [...] Status Pt. Type Provider Facility Loc./Unit Complaint [id number] 2016 14:11:00 2015 17:54:00 DIS Emergency Adeline Gilliam DO [address] W.KATHERYN [id number] 10/24/2015 11:56:00 2014 18:31:00 DIS Inpatient Myra ADKINS, [facility] [place] W.5WH [id number] 10/21/2015 13:45:00 2014 19:18:00 DIS Emergency Myra ADKINS, [facility] [place] W.2WOBED [id number] 07/13/2015 17:44:00 2014 21:09:00 DIS Emergency Myra ADKINS, [facility] [place] W.2WOBED [id number] 04/13/2015 18:23:00 2014 21:41:00 DIS Emergency Jovanna ADKINS, [facility] [id number] 07/29/2014 22:48:00 2013 04:13:00 DIS Emergency Uri Spencer DO [facility] W.KATHERYN [id number] 08/18/2015 13:53:00 Document Registration
--- OUTSIDE RECORDS SUMMARY | 2017-01-17 19:56 | XMS REPORT | Continuity of Care Document ---
Author Author [facility] Organization [facility] Address Unknown Phone Unavailable Care Team Providers Care Real Estate Teacher Name Role Phone FRANK MANZO Primary Care Physician [phone] Insurance Providers Payer Name Policy Number Subscriber Name Relationship Effie [employer] [id number] Karlo Galindo 17 Self Problems Medical Problems [...] F (96.8 - 99.1) Temperature (Calculated Celsius) 36.46251 degrees C (36.0 - 37.3) Pulse Rate [...] 29, 2013 10:31am LAB RESULTS - SCANNED [id number] - Immature Granulocyte # (Auto) February 18, 2013 4:45pm 0.00 T/MM3 N 0.00- 0.03 Immature Granulocyte % (Auto) February 18, 2013 4:45pm 0.0 % N 0.0-0.5 Gram Stain Knee, Non-Surgical Site-Left August 25, 2013 1:00pm Procedures No known history of procedures. Encounters Encounter Location Date/Time Departed Emergency Room [facility] 11/18/14 1:56pm Departed Emergency Room [facility] 08/30/14 12:47am Recent Diagnosis
--- OUTSIDE RECORDS SUMMARY | 2017-01-17 19:56 | XMS REPORT | Continuity of Care Document ---
Author Author [facility] Organization [facility] Address Unknown Phone Unavailable Care Team Providers Care Lumber Stacker Operator Name Role Phone DAISY CASTANO DO Primary Care Physician [phone] Insurance Providers Payer Name Policy Number Subscriber Name Relationship Effie [employer] [id number] Karlo Galindo 17 Self Problems Medical Problems [...] F (96.8 - 99.1) Temperature (Calculated Celsius) 37.12807 degrees C (36.0 - 37.3) Pulse Rate [...] 29, 2013 10:31am LAB RESULTS - SCANNED [id number] - Immature Granulocyte # (Auto) February 18, 2013 4:45pm 0.00 T/MM3 N 0.00- 0.03 Immature Granulocyte % (Auto) February 18, 2013 4:45pm 0.0 % N 0.0-0.5 Gram Stain Knee, Non-Surgical Site-Left August 25, 2013 1:00pm Procedures No known history of procedures. Encounters Encounter Location Date/Time Departed Emergency Room [facility] 07/28/14 9:45pm Recent Diagnosis
[2017-01-17] MEDS ORDERED: PREN1TAB73 PO (20:03)
[2017-01-17] MEDS ORDERED: iron (20:03)
--- NOTE | 2017-01-17 20:04 | ERPDOC ---
Departure Disposition Decision Date: Jan 17, 2017 Disposition Decision Time: 20:05 Disposition: 01 DISCHARGED HOME, SELF-CARE Impression Impression Impression: Primary Impression: Coccyx contusion Encounter type: initial encounter Qualified Codes: S30.0XXA - Contusion of lower back and pelvis, initial encounter Severity: Moderate Condition: Stable Seen By: Mid-level only Referrals: FRANK MANZO (PCP) DAISY CASTANO DO (Family) Patient Instructions: Coccyx Injury (ED) Problems/Meds/Labs Reviewed?: Yes Medications reviewed and manag: Yes Additional Instructions: I do want you to take the Jamul as needed for severe pain and Tylenol as needed for mild pain. You should off load your weight off of the coccyx as needed for comfort. Follow up on Sunday with your [facility] for reevaluation. Return to Er with any vaginal bleeding or abdominal pain Follow up care ordered?: Yes Mental Status: Alert, Oriented Scripts Hydrocodone/Acetaminophen (Jamul 5-325 Tablet) 5-325 Tablet 1 TAB PO Q6H Y for PAIN, #15 TAB 0 Refills Prov: ESTHER BALDERRAMA Lidya BATISTA 01/17/17 HPI - Back Pain General Chief Complaint: Back Pain or Injury Stated Complaint: 11 WEEKS /FALL Time Seen by Provider: 19:48 Source: patient Exam Limitations: no limitations HPI - Back Pain Initial Comments She was at home this evening and fell down 14 [address] stairs on her bottom. She does have some abrasions on the bilateral forearms but is mostly complaining about tailbone pain. She denies any numbness/tingling in her legs or weakness in her legs. She is 11 weeks but denies any abdominal pain , vaginal discharge, or vaginal bleeding. She did not take anything for pain at home. Occurred At: home Onset/Timing: Rapid Duration: 1-3 hrs Severity/Quality: moderate Location: coccyx Method of Injury/Context: fell (slid down 14 stairs) Associated Sypmtoms: lower back pain, DENIES: fever, loss of bladder control, loss of bowel control, muscle spasms, numbness in legs/feet, sensory/motor loss , tingling in legs/feet, weakness Hx of Similar Symptoms: No Allergies: Coded Allergies: No Known Drug Allergies (Verified Allergy, Unknown, NONE, 11/18/14) Past History Past Medical History ENMT: allergies Hx Echocardiogram: No Respiratory: asthma Surgical History General: other Family History Family History: Negative Family PMH: FOUND: other Vaccines Hx Influenza Vaccination: No Hx Pneumococcal Vaccination: No Hx Tetanus, Diptheria, Pertuss: Yes Social History Does patient use chewing tobac: No # of Packs/Tins per Day: 1 # of Years: 7 Second Hand Exposure: No Substance Use Type: does not use Review of Systems GI Upper Abdomen: DENIES: nausea, pain, vomiting Lower Abdomen: DENIES: constipation, diarrhea, pain General: DENIES: dysuria, frequency, incontinence, urgency Musculoskeletal General: pain (tailbone), tenderness (in the tailbone) Integumentary Skin: DENIES: rash Neurological General: DENIES: headache, numbness, tingling, weakness Physical Exam General General Nourishment: well nourished, well developed, appears stated age, no acute distress, adult General Body Habitus: well groomed Vitals and Pain First Documented Vital Signs Date Time Temp Pulse Resp B/P Pulse Ox O2 Delivery O2 Flow Rate FiO2 01/17/17 19:40 98.8 104 18 109/56 100 Room Air Weight: Kilograms: 52.600 Height (feet): 5 Height (inches): 7.00 Triage Pain Scale: RN VS reviewed by Provider: Yes Normal Exams: Lymphatic: No lymphadenopathy, or lymphedema noted Integumentary: No rashes, hives, or bruising noted Neurologic: Patient is alert, and oriented Psychiatric: Patient exhibits, appropriate attention, emotion and affect Respiratory (brief) Respiratory: FOUND: clear all vaughn, equal bilaterally, symmetrical, NOT FOUND : wheezes Cardiovascular (brief) Cardiac: FOUND: regular rate, regular rhythm, NOT FOUND: pedal edema Capillary Refill: <2 sec Pulses: all distal extremities, equal, strong Abdomen (brief) Abdominal Brief: FOUND: bowel normo active x4, soft, NOT FOUND: tender Musculoskeletal (brief) Musculoskeletal Brief: FOUND: tenderness (moderate TTP over the coccyx. She does not have any deformity or bruising noted. No abrasions. Does also have mild TTP over the left SI joint) Psychiatric (brief) Psychiatric Brief: FOUND: alert, oriented Differential Diagnoses Considering: Fracture, Lumbar Sprain, Lumbar Strain, Other (Contusion, ) Progress Results/Orders Orders Procedure Category Date Status Time Hydrocodone/Acetaminophen PHA 01/17/17 Complete (Jamul 5/325) 20:15 Medications Current ED Medications Acetaminophen/ Hydrocodone Bitart (Jamul 5/325) 1 tab O ONCE PO Last administered on 01/17/17t 20:15; Start 01/17/17 at 20:15; Stop 01/17/17 at 20:16 ; Status DC Progress Progress Given that she is will no do any films today. I did talk with her that the coccyx contusion and fracture are more about pain control. Will have her off load weight from the coccyx with sitting and Jamul as needed for pain. FHT taken and were strong and regular at 166. She does have an appointment with her [facility] early next week. Monitor for any vaginal bleeding or low abdominal pain. Strict return precautions given. ESTHER BALDERRAMA APRN Jan 17, 2017 20:04
[2017-01-17] MEDS ORDERED: HYDR-4246 PO (20:07)
[2017-01-17] MEDS ORDERED: HYDROCODONE/APAP 5 mg/325 mg TABLET PO ONE (20:15)
[2017-01-17 20:19] VITALS: BP 109/56; PULSE 104; RESP 18; TEMP 98.8; O2SAT 100
== END 2017-01-17 20:20 | disposition home or self-care (01) ==
LOC: ED 19:29
DX: O9A.211 Injury, poisoning and certain other consequences of external causes complicating pregnancy, first trimester (principal); S30.0XXA Contusion of lower back and pelvis, initial encounter; Z3A.11 11 weeks gestation of pregnancy; W10.9XXA Fall (on) (from) unspecified stairs and steps, initial encounter; Y93.9 Activity, unspecified; Y92.008 Other place in unspecified non-institutional (private) residence as the place of occurrence of the external cause; Y99.8 Other external cause status